=== PATIENT | male | born 1995 | race American Indian/Alaskan Native ===

== ENCOUNTER 2017-10-14 17:39 | Emergency (ER) | payer OTHER ==
[2017-10-14 18:11] VITALS: BP 120/59
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
== END 2017-10-14 20:20 | disposition home or self-care (01) ==
LOC: ED 17:39
DX: S09.90XA Unspecified injury of head, initial encounter (principal); M54.5 Low back pain; V49.59XA Passenger injured in collision with other motor vehicles in traffic accident, initial encounter; Y93.89 Activity, other specified; Y92.89 Other specified places as the place of occurrence of the external cause; Y99.8 Other external cause status
CPT/HCPCS: 70450; 72125; 72128; 72131

== ENCOUNTER 2021-12-14 19:58 | Emergency (ER) | payer SELFPAY ==
[2021-12-14 21:59] VITALS: BP 203/98
== END 2021-12-15 07:00 | disposition left against medical advice (07) ==
LOC: ED 19:58
DX: S69.91XA Unspecified injury of right wrist, hand and finger(s), initial encounter (principal); Z53.21 Procedure and treatment not carried out due to patient leaving prior to being seen by health care provider; V87.7XXA Person injured in collision between other specified motor vehicles (traffic), initial encounter; Y93.89 Activity, other specified; Y92.488 Other paved roadways as the place of occurrence of the external cause; Y99.8 Other external cause status